=== PATIENT | male | born 1960 | race Caucasian/White ===

== ENCOUNTER 2023-10-13 11:52 | Day surgery (SDC) | payer BC ==
[~2023-10-13] VITALS: Ht 177.8 cm; Wt 102.9 kg
[~2023-10-13 11:52] MED LIST: LR 1,000 ML IV SCH
[2023-10-13] MEDS ORDERED: VARENICLINE PO (12:22)
[2023-10-13 12:23] VITALS: BP 120/70; PULSE 57; TEMP 98.1
[2023-10-13] MEDS ORDERED: fentaNYL 50 MCG/ML 5 ML VIAL ONE (13:24)
[2023-10-13] MEDS ORDERED: Lidocaine PF 2% (20 MG/ML) 5 ML VIAL ONE (13:25)
[2023-10-13] MEDS ORDERED: Ketorolac 30 MG/ML VIAL ONE (14:21)
[2023-10-13] MEDS ORDERED: dexAMETHasone 10 MG/ML VIAL ONE (14:21)
[2023-10-13] MEDS ORDERED: Ondansetron 4 MG/2 ML VIAL ONE (14:21)
[2023-10-13] MEDS ORDERED: droPERidol 2.5 MG/ML 2 ML VIAL IV PRN (14:45)
[2023-10-13] MEDS ORDERED: fentaNYL 50 MCG/ML 1 ML SYRINGE/VIAL [PACU/SDC ONLY] IV PRN (14:45)
[2023-10-13] MEDS ORDERED: Morphine 2 MG/1 ML VIAL [PACU/SDC ONLY] IV PRN (14:45)
[2023-10-13] MEDS ORDERED: Ondansetron 4 MG/2 ML VIAL IV PRN (14:45)
[2023-10-13] MEDS ORDERED: HYDROmorphone 1 MG/1 ML SYRINGE [PACU/SDC ONLY] IV PRN (14:45)
[2023-10-13] MEDS ORDERED: Meperidine 50 MG/ML 1 ML VIAL IV PRN (14:45)
[2023-10-13] MEDS ORDERED: NORCO 325 MG-51 TAB PO (15:15)
[2023-10-13] MEDS ORDERED: MOTRIN 600600 MG/TAB PO (15:15)
[2023-10-13 16:00] VITALS: BP 157/66; PULSE 55
--- NOTE | 2023-10-13 16:00 | NUR ---
PATIENT RETURNS TO ROOM 7 PER CART FROM PACU ACCOMPANIED BY JEFFERSON MCLEOD. AWAKE AND ALERT. IVF INFUSING. DRESSING TO LEFT REYNA AND CALF CDI. DENIES PAIN OR NAUSEA. CALL LIGHT IN REACH. SIPPING ON DIET PEPSI. WAS COMPLAINING OF LEFT SHOULDER PAIN THAT WAS TREATED WITH IV FENTANYL BY JEFFERSON MCLEOD. STATES THAT HE HAS BEEN HAVING LEFT SHOULDER PAIN FOR THE PAST THREE YEARS. TEMP 97.1. CONVERSING WITH SPOUSE.
[2023-10-13 16:15] VITALS: BP 150/69; PULSE 50
--- NOTE | 2023-10-13 16:15 | NUR ---
CONTINUES TO DENY PAIN OR NAUSEA DRESSINGS REMAIN CDI ON LEFT LOWER LEG.
[2023-10-13 16:30] VITALS: BP 157/67; PULSE 54
--- NOTE | 2023-10-13 16:30 | NUR ---
IV DISCONTINUED AND SITE IS FREE OF REDNESS. DRESSES SELF. DENIES PAIN. DISCHARGE INSTRUCTIONS GIVEN AND SIGNED.
--- NOTE | 2023-10-13 16:38 | NUR ---
PATIENT TAKEN TO PRIVATE VEHCILE DRIVEN BY SPOUSE AND DISCHARGED TO HOME WITH INSTRUCTIONS IN HAND.
[2023-10-13 16:55] VITALS: BP 163/92; PULSE 52; TEMP 97.1
== END 2023-10-13 16:38 | disposition home or self-care (01) ==
LOC: SDCO 11:52
DX: D03.72 Melanoma in situ of left lower limb, including hip (principal); L57.0 Actinic keratosis; G47.33 Obstructive sleep apnea (adult) (pediatric); F17.210 Nicotine dependence, cigarettes, uncomplicated; F17.220 Nicotine dependence, chewing tobacco, uncomplicated; E66.9 Obesity, unspecified; Z68.31 Body mass index [BMI] 31.0-31.9, adult
CPT/HCPCS: J0690; J1100; J1885; J2405; J2704; J3010; J7120